=== PATIENT | male | born 1955 | race Caucasian/White ===

== ENCOUNTER → 2016-11-05 | Outpatient (CLI) | payer BC ==
[~2016-11-05] MED LIST: REGADENOSON 0.4 MG/5 ML DISP.SYRIN. IV ONE
--- NOTE | 2016-11-11 17:12 | PCVCIMAG ---
APPROVED REPORT Exam: Nuclear Stress Test Indication: Chest presure, Dyspnea , Abnormal EKG Patient Location: [facility] Stress Nurse: Kaley Valencia RN, Jessica Yanez RN [place] Tech:Carey Leigh [facility] Ht: 6 ft 0 in Wt: 185 lbs BSA: 2.06 m2 HR: 103 bpm BP: 119/79 mmHg BMI: 25.0 Rhythm: Sinus Tachycardia Medical History Medical History: HTN, Hyperlipidemia, COPD, Smoking-current, CVD, dyspnea Medications: ASA, Lisinopril, Metoprolol (held 24 hours) Sertraline, Crestor Allergies: Sulfa Cardiac Risk Factors: Age Previous Cardiac Procedures: Cath-RCA 50%, Circ occluded with collaterals Pretest Chest Pain Characteristics: No chest pain Exercise History: Sedentary Physical Disabilities: Knees NM EXAM: Myocardial Perfusion REST/STRESS Imaging Protocol: Rest Tc-99m/Stress Tc-99m 1 day Resting Data Rest SPECT myocardial perfusion imaging was performed in supine position 45 minutes following the intravenous injection of 10.6 mCi of Tc-99m Sestamibi. Time of rest injection: 1230 Date: 11/04/2016 Pharmacologic Stress Pharmacologic stress test was performed by injecting Regadenoson 0.4 mg IV push followed by the intravenous injection of 31.9 mCi of Tc-99m Sestamibi. Time of stress injection: 1330 Date: 11/05/2016 Administration Route: IV Administration Site: Left Arm Gated Stress SPECT was performed 45 minutes after stress injection. The images were gated to evaluate regional wall motion and calculate left ventricular ejection fraction. Study Quality Study: Good Study Data Post stress, the left ventricular ejection was 58%.. SSS: 11 SRS: 4 SDS: 8 TID = 0.85. Perfusion Medium sized area of moderate reversible ischemia involving the mid/basal inferolateral left ventricle consistent with patient's know circumflex distribution. No obvious right coronary artery distribution ischemia. Wall Motion Normal left ventricular size and function with no regional wall motion abnormalities. Nuclear Conclusion Medium sized area of moderate reversible ischemia involving the mid/basal inferolateral left ventricle consistent with patient's know circumflex distribution. Normal left ventricular size and function with no regional wall motion abnormalities. Post stress, the left ventricular ejection was 58%.. No prior study available for comparison. Interpreted by: Nic Morelos MD Electronically Approved: 11/05/2016 17:38:35 Stress Test Details Stress Test: Pharmacologic stress testing performed using 0.4 mg of regadenoson per 5 mL given IV over 10 seconds. Reason for pharmacologic stress test: physical limitation. HR Resting HR: 103 bpmMax Heart Rate (APMHR): 161 bpm Max HR Achieved: 114 bpmTarget HR (85% APMHR): 136 bpm % of APMHR: 70 Recovery HR: 111 bpm BP Resting BP: 119/79 mmHg Max BP: 103/61 mmHg Recovery BP: 125/73 mmHg ECG Resting ECG: Sinus Tachycardia, Sinus Rhythm, nonspecific ST-T abnormalities Stress ECG: Sinus Tachycardia, Sinus Rhythm, nonspecific ST-T abnormalities ST Change: Non-ischemic Maximum ST Deviation: 0.8 mm Arrhythmia: None Recovery ECG: Sinus Rhythm, NSSTT changes Recovery ST Change: None Recovery Arrhythmia: None Clinical Reason for Termination: Completed protocol Stress Symptoms: Dyspnea Exercise duration: 0 min 55 sec Symptoms resolved during recovery. Stress ECG Conclusion ECG: Non-ischemic <Conclusion> ECG: Non-ischemic
== END | disposition home or self-care (01) ==
LOC: PCVCIMAG 13:00
PROVIDERS: ATTEND Internal Medicine Cardiovascular Disease
DX: I25.10 Atherosclerotic heart disease of native coronary artery without angina pectoris (principal); I10 Essential (primary) hypertension; E78.5 Hyperlipidemia, unspecified; J44.9 Chronic obstructive pulmonary disease, unspecified; F17.200 Nicotine dependence, unspecified, uncomplicated; R00.0 Tachycardia, unspecified; K21.9 Gastro-esophageal reflux disease without esophagitis; I65.23 Occlusion and stenosis of bilateral carotid arteries; E78.00 Pure hypercholesterolemia, unspecified
CPT/HCPCS: 78452; 93017; A9500; J2785

== ENCOUNTER → 2017-08-19 | Outpatient (CLI) | payer BC | END | disposition home or self-care (01) | LOC: PCVCIMAG 13:09 | DX: Z79.82 Long term (current) use of aspirin (principal); I25.10 Atherosclerotic heart disease of native coronary artery without angina pectoris; I10 Essential (primary) hypertension; E78.00 Pure hypercholesterolemia, unspecified; I77.9 Disorder of arteries and arterioles, unspecified; I65.23 Occlusion and stenosis of bilateral carotid arteries; R94.31 Abnormal electrocardiogram [ECG] [EKG]; F17.210 Nicotine dependence, cigarettes, uncomplicated; Z79.899 Other long term (current) drug therapy | CPT/HCPCS: 80061; 93005; 93880 ==

== ENCOUNTER → 2017-09-26 | Outpatient (CLI) | payer BC ==
[~2017-09-26] MED LIST changes: +REGADENOSON 0.4 MG/5 ML DISP.SYRIN. IV; -REGADENOSON 0.4 MG/5 ML DISP.SYRIN. IV ONE
== END | disposition home or self-care (01) ==
LOC: PCVCIMAG 12:18
DX: I25.10 Atherosclerotic heart disease of native coronary artery without angina pectoris (principal); R07.9 Chest pain, unspecified; R06.00 Dyspnea, unspecified; I10 Essential (primary) hypertension; E78.5 Hyperlipidemia, unspecified; J44.9 Chronic obstructive pulmonary disease, unspecified; F17.210 Nicotine dependence, cigarettes, uncomplicated
CPT/HCPCS: 78452; 93017; A9500; J2785